=== PATIENT | male | born 1950 | race Caucasian/White ===

== ENCOUNTER → 2022-02-20 14:27 | Outpatient (BNVA) | payer OTHER, SELFPAY | PROVIDERS: PCP Family Medicine; Visit Provider Internal Medicine Cardiovascular Disease | DX: I49.3 Ventricular premature depolarization (principal); R94.31 Abnormal electrocardiogram [ECG] [EKG]; F12.90 Cannabis use, unspecified, uncomplicated; F17.220 Nicotine dependence, chewing tobacco, uncomplicated | CPT/HCPCS: 93005; 99203; 99204 ==

== ENCOUNTER 2022-03-09 08:01 | Outpatient (CLI) | payer OTHER, SELFPAY ==
--- NOTE | 2022-03-09 08:18 | ECG_ITS ---
[facility] Test Date: 2022-03-09 Pat Name: Angelo Blackmon Department: Room: Gender: Male Customer Care Professional: : 1950 Requested By: Jacquie James Order Number: [id number] Isaiah MD: Jacquie James M.D. Interpretive Statements NAME OF STUDY: EXERCISE SESTAMIBI STRESS TEST INDICATION: VENTRICULAR ARRYTHMIAS/DYSPNEA, PROCEDURE: The baseline electrocardiogram showed normal sinus rhythm with some nonspecific T wave changes. Left axis deviation. 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 At the baseline, the patient's blood pressure was 113/87 mm Hg with a heart rate of 70 bpm. The patient exercised for 6 minutes on a standard Timothy protocol. Patient attained a maximum heart rate of 135 beats per minute(90% of the maximum predicted heart rate) with a blood pressure at the peak exercise of 148/60 mm Hg. The EKG at the peak exercise revealed no significant changes. Patient did not have any chest pain or any significant arrhythmis with the exercise Sestamibi was injected 1 minute prior to the peak exercise During the recovery phase, there were no new changes. Frequent PVCs were noted on the monitor Blood pressure at the end of the recovery phase was 154/74 mm Hg with a heart rate of 90 per minute. CONCLUSION: 1. No significant EKG changes with the treadmill exercise 2. No exercise-induced chest pain. Exercise induced ventricular arrhythmias were noted . 3. Somewhat impaired exercise tolerance, attained a maximum of 7 METs 4. Sestamibi/Sestamibi perfusion results pending; see separate report. Electronically Signed On 03-17-2022 7:19:56 CDT by Jacquie James M.D. [email or web address]
--- NOTE | 2022-03-09 08:18 | NMCV_ITS ---
NM samia perf SPECT r/s* [id number] Angelo Blackmon Age: 71 Gender: M : 1950 Exam Date: 03/09/2022 08:18 Ordering Phys: Jacquie James MD ([email or web address]) Technologist: MARINA Aly Exam Location: [facility] Indications: CORONARY ANGIOPLASTY STATUS STRESS TEST Please see separate stress test report in [facility] for full findings IMAGE PROTOCOL Rest/Stress 1 Exercise Day Radiopharmaceutical Dose (mCi) Administration Site Administered by Rest: Tc-99m 10.6 IV MARINA Iglesias Sestamibi Stress:Tc-99m 32.5 IV MARINA Iglesias Sestamibi Rest: 09-Mar-2022 60 Discovery 630 Stress: 09-Mar-2022 15 Discovery 630 Radiopharmaceutical was injected at 85 % maximum heart rate. Images obtained in supine and prone position. SPECT RESULTS Technical Quality: Excellent Raw Data Analysis: Normal Image Corrections: No attenuation or motion correction applied Summed Stress Score: 3 Summed Rest Score: 4 Summed Difference Score: 1 PERFUSION FINDINGS Moderate area of slightly decreased tracer uptake in the mid and apical inferior and mid inferoseptal region with some reversibility in the mid inferior region. However with the prone imaging, there was no significant reversibility FUNCTIONAL RESULTS (calculated via Gated SPECT) Stress Image LV EF (%): 62 Stress EDV (mL):103 TID: 1.08 Stress ESV (mL):39 FUNCTIONAL FINDINGS: LV wall motion analysis revealing no gross wall motion abnormalities. IMPRESSIONS 1. Myocardial perfusion imaging revealing moderate area of slightly decreased pressures and tracer uptake in the inferior and inferoseptal region with some reversibility in the mid inferior, may suggest ischemia in the distribution of the right coronary artery. However because of the inconsistency, most likely this is artifactual 2. Normal LV ejection fraction of 62%. 3. LV wall motion analysis revealing no gross wall motion abnormalities. 4. Normal LV volume Possibly no significant ischemia, based on the above findings Dr Jacquie James MD FACC (Electronically Signed) Final Date: 09 March 2022 18:16 S
[2022-03-09 10:27] VITALS: BP 154/74; PULSE 87
--- NOTE | 2022-03-09 13:15 | USCV_ITS ---
Angelo Blackmon Age: 71 Gender: M : 1950 Exam Date: 03/09/2022 08:25 Ordering Phys: Jacquie James MD ([email or web address]) Technologist: Exam Location: [facility] [place] Indication: afib chest pain BP: 120 / 70 HR: 53 Rhythm: Sinus Technical Quality: MEASUREMENTS (Male / Female) Normal Values 2D ECHO LV Diastolic Diameter PLAX 4.2 cm 4.2 - 5.9 / 3.9 - 5.3 cm LV Systolic Diameter PLAX 2.4 cm IVS Diastolic Thickness 1.0 cm 0.6 - 1.0 / 0.6 - 0.9 cm IVS Systolic Thickness 1.5 cm LVPW Diastolic Thickness 1.3 cm 0.6 - 1.0 / 0.6 - 0.9 cm LVPW Systolic Thickness 1.3 cm LVOT Diameter 2.1 cm LV Ejection Fraction 2D Teich 73.7 % LV Ejection Fraction MOD 2C 70.0 % LV Ejection Fraction 2C AL 69.2 % LA Diameter 3.6 cm IVC Diameter 1.1 cm M-MODE Aortic Annulus Diameter 3.5 cm LA Ao Ratio MM 1.0 MV E Point Septal Separation 0.9 cm DOPPLER AV Peak Velocity 118.0 cm/s LVOT Peak Velocity 77.0 cm/s AV Area Cont Eq vti 2.3 cm squared AV Area Cont Eq pk 2.3 cm squared MV Area PHT 2.5 cm squared Mitral E to A Ratio 0.6 MV E' Velocity 29.5 cm/s Mitral E to MV E' Ratio 8.6 Mitral E to LV E' Lateral Ratio 7.7 Mitral E to LV E' Septal Ratio 10.0 TR Peak Velocity 280.7 cm/s TR Peak Gradient 31.5 mmHg TV Peak E Velocity 66.0 cm/s Right Atrial Pressure 3.0 mmHg Pulmonary Artery Systolic Pressu 34.5 mmHg RV Acceleration Time 0.1 s FINDINGS Left Ventricle Normal left ventricular size and systolic function, EF 64 %. No regional wall motion abnormalities. Grade I/IV diastolic dysfunction (abnormal relaxation filling pattern), normal to mildly elevated filling pressures. Right Ventricle Normal right ventricular size and systolic function. Right Atrium The right atrium is normal in size. Left Atrium The left atrium is normal in size. Mitral Valve Thickened mitral valve. Trace to mild mitral valve regurgitation. Aortic Valve Thickened aortic valve. Tricuspid Valve Mild tricuspid valve regurgitation. Estimated pulmonary artery peak systolic pressure 35 mmHg Pulmonic Valve No gross abnormalities noted Pericardium Normal pericardium without effusion. Aorta Normal ascending aorta dimension. IVC Normal inferior vena cava. CONCLUSIONS Normal left ventricular size and systolic function, EF 64 %. No regional wall motion abnormalities. Grade I/IV diastolic dysfunction (abnormal relaxation filling pattern), normal to mildly elevated filling . Thickened mitral valve. Trace to mild mitral valve regurgitation. Mild tricuspid valve regurgitation. Thickened aortic valve. Mild tricuspid valve regurgitation. Estimated pulmonary artery peak systolic pressure 35 mmHg There are no intracardiac masses. There is no pericardial effusion. No similar previous studies are available for comparison. Dr Jacquie James MD FACC (Electronically Signed) Final Date: 09 March 2022 18:28 S
== END 2022-03-09 08:02 | disposition home or self-care (01) ==
LOC: CDL 08:05
PROVIDERS: PCP Family Medicine; Visit Provider Internal Medicine Cardiovascular Disease
DX: R94.31 Abnormal electrocardiogram [ECG] [EKG] (principal); R06.09 Other forms of dyspnea; I48.91 Unspecified atrial fibrillation; R07.9 Chest pain, unspecified; I08.3 Combined rheumatic disorders of mitral, aortic and tricuspid valves; I47.0 Re-entry ventricular arrhythmia
CPT/HCPCS: 78452; 93017; 93306; A9500

== ENCOUNTER 2023-03-28 09:25 | Outpatient (CLI) | payer OTHER, SELFPAY ==
--- NOTE | 2023-03-28 09:36 | USCV_ITS ---
LorriAngelo Age: 72 Gender: M : 1950 Exam Date: 03/28/2023 09:44 Ordering Phys: Sunita Ya MD Technologist: ABRAHAM [place] [facility] [place]ication: aaa screening HISTORY: Diameter (cm) AP x Transverse x Length Velocity (cm/s) Waveform Prox Aorta: 1.87 x 1.90 x 80.20 Mid Aorta: 1.76 x 1.72 x 58.20 Distal Aorta: 1.72 x 1.83 x 71.00 Right Iliac Prox: 1.11 x 1.11 x 78.40 Left Iliac Prox: 1.09 x 1.16 x 91.30 Stent Prox Landing x x Aneurysmal Sac Max x x Lt Lat Sac Dim Rt Lat Sac Dim Stent Dist Landing x x Right Iliac Stent x x Left Iliac Stent x x Right Renal Art Left Renal Art FINDINGS: CONCLUSIONS No evidence of abdominal aortic or bilateral iliac aneurysm. 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 Sp Rizzo MD (Electronically Signed) Final Date: 28 March 2023 10:38 S
== END 2023-03-28 09:26 | disposition home or self-care (01) ==
PROVIDERS: PCP Family Medicine; Visit Provider Family Medicine
DX: Z01.89 Encounter for other specified special examinations (principal); Z13.89 Encounter for screening for other disorder; I99.8 Other disorder of circulatory system
CPT/HCPCS: 76706